=== PATIENT | female | born 1960 | race Caucasian/White ===

== ENCOUNTER → 2019-06-28 | Outpatient (CLI) | payer OTHER ==
--- NOTE | 2019-06-28 13:26 | PFTRPT ---
Height: 62.00 Inches Weight: 289.00 Lbs BSA: 2.24 Diagnosis: J44.9 DATE OF PROCEDURE: 06/28/2019 ORDERED BY: Estefany Vital NP Spirometry: Pre and post bronchodilator study of excellent technical quality. Forced vital capacity reduced. FEV1 in proportion. Obstructive index is, therefore, normal. Flow Volume Loop: Expiratory limb of the flow volume loop suggests nonspecific limitation. No significant bronchodilator response identified. Lung Volumes: Total lung capacity normal. Residual volume does suggest a degree of air trapping. Diffusing Capacity: Diffusing capacity normal. Hemoglobin: No hemoglobin available for correction. Airway Mechanics: Airway resistance mildly elevated with concomitant decrease in airway conductance. IMPRESSION: Nonspecific flow rate limitation with suspected air trapping. Please correlate clinically. MTDD
== END ==
LOC: M CARPUL 12:47
PROVIDERS: ATTEND Nurse Practitioner Family
DX: J44.9 Chronic obstructive pulmonary disease, unspecified (principal)

== ENCOUNTER → 2019-08-03 | Outpatient (REF) | payer MEDICAID, OTHER ==
[2019-08-03 16:03] LABS: ALBUMIN 3.8 GM/DL (3.2-5.2); BILIRUBIN,TOTAL 0.3 MG/DL (0.2-1.0); CALCIUM LEVEL 9.1 MG/DL (8.5-10.1); CHOLESTEROL RISK RATIO 3.941 (<5); CREATININE FOR GFR 1.6 MG/DL (0.55-1.30); FREE T4 1.08 NG/DL (0.76-1.46); GLOMERULAR FILTRATION RATE 35.4 (>51); POTASSIUM SERUM 4.5 MEQ/L (3.5-5.1); THYROID STIMULATING HORMONE 5.01 uIU/ML (0.358-3.740); TOTAL PROTEIN 7.3 GM/DL (6.4-8.2)
== END ==
LOC: M SFHCPLAZ 13:46
DX: E11.8 Type 2 diabetes mellitus with unspecified complications (principal); E03.9 Hypothyroidism, unspecified; E78.2 Mixed hyperlipidemia

== ENCOUNTER → 2019-09-22 | Outpatient (CLI) | payer OTHER ==
[2019-09-22 15:21] LABS: BASO # 0.1 10^3/uL (0.0-0.2); BASO % 0.8 % (0.0-1.0); EOS # 0.3 10^3/uL (0.0-0.5); EOS % 3.2 % (0.0-3.0); LYMPH # 3.9 10^3/uL (1.5-5.0); LYMPH % 37.4 % (24.0-44.0); MEAN CORPUSCULAR HEMOGLOBIN 29.6 pg (27.0-33.0); MEAN CORPUSCULAR HGB CONC 32.6 g/dl (32.0-36.5); MEAN CORPUSCULAR VOLUME 90.9 fl (80.0-96.0); MONO # 0.7 10^3/uL (0.0-0.8); MONO % 6.3 % (0.0-5.0); NEUTROPHILS # 5.5 10^3/uL (1.5-8.5); NEUTROPHILS % 51.8 % (36.0-66.0); PLATELET COUNT, AUTOMATED 209 10^3/uL (150-450); RED BLOOD COUNT 4.73 10^6/uL (4.00-5.40); WHITE BLOOD COUNT 10.5 10^3/uL (4.0-10.0)
[2019-09-22 15:39] LABS: ALBUMIN 3.7 GM/DL (3.2-5.2); CALCIUM LEVEL 8.8 MG/DL (8.5-10.1); CREATININE FOR GFR 1.6 MG/DL (0.55-1.30); GLOMERULAR FILTRATION RATE 35.4 (>51); MAGNESIUM LEVEL 1.8 MG/DL (1.8-2.4); PHOSPHORUS LEVEL 3.4 MG/DL (2.5-4.9); POTASSIUM SERUM 4.2 MEQ/L (3.5-5.1)
[2019-09-22 15:43] LABS: APPEARANCE, URINE CLOUDY (CLEAR); BACTERIA, URINE AUTO 1+ (NEGATIVE); BILIRUBIN, URINE AUTO NEGATIVE (NEGATIVE); BLOOD, URINE BLOOD 3+ (NEGATIVE); COLOR, URINE YELLOW (YELLOW); GLUCOSE, URINE (UA) AUTO NEGATIVE (NEGATIVE); KETONE, URINE AUTO TRACE mg/dL (NEGATIVE); LEUKOCYTE ESTERASE, URINE AUTO NEGATIVE (NEGATIVE); MUCUS, URINE SMALL (NEGATIVE); NITRITE, URINE AUTO NEGATIVE (NEGATIVE); PROTEIN, URINE AUTO 1+ mg/dL (NEGATIVE); RBC, URINE AUTO 4 /HPF (0-3); SPECIFIC GRAVITY URINE AUTO 1.035 (1.002-1.035); SQUAMOUS EPITHELIAL CELL UR AU 14 /HPF (0-6); UROBILINOGEN, URINE AUTO 0.2 mg/dL (0.0-2.0); WBC, URINE AUTO 4 /HPF (0-3)
[2019-09-22 15:48] LABS: PTH INTACT 97.8 PG/ML (18.5-88.0)
[2019-09-22 15:51] LABS: MALB URINE SIEMENS 23.8 MG/L; MAU/CREAT RATIO 5.3 MCG/MG (0.0-30.0)
== END ==
LOC: M LAB 14:26
PROVIDERS: ATTEND Internal Medicine Nephrology
DX: N18.3 Chronic kidney disease, stage 3 (moderate) (principal); E11.22 Type 2 diabetes mellitus with diabetic chronic kidney disease; N25.81 Secondary hyperparathyroidism of renal origin

== ENCOUNTER → 2019-10-01 | Outpatient (CLI) | payer OTHER ==
[2019-10-01 19:30] LABS: TOTAL PROTEIN,RANDOM URINE 13.9 MG/DL (0.0-12.0); URINE TOTAL PROTEIN 13.9 MG/DL (0-12)
[2019-10-01 19:31] LABS: COMPLEMENT C3 136 MG/DL (90-180); COMPLEMENT C4 22 MG/DL (10-40); TOTAL PROTEIN 7.3 GM/DL (6.4-8.2)
--- NOTE | 2019-10-02 07:32 | REP ---
REASON: Renal disease and diabetes. PRIORS: None. Multiple ultrasonographic image of the urinary bladder were obtained transvesically and show no evidence of mass or significant mucosal abnormality. Doppler of the UV junction shows urojet phenomena bilaterally. The pre-void urinary bladder volume calculation is 274 mL with the post-void urinary bladder volume calculation is 0 mL. IMPRESSION: Unremarkable exam as described above. Electronically Signed by Felice Hankins DO 10/02/2019 09:21 A
--- NOTE | 2019-10-02 07:35 | REP ---
REASON: Diabetes and kidney disease. PRIORS: None. The right kidney measures 9.9 x 3.9, x 4.6 cm and the left kidney measures 8.2 x 4.5 x 4.6 cm. The renal cortical echoes are significantly diffusely increased with very poor corticomedullary differentiation. There are no cystic or solid masses on either side. There is no hydronephrosis. IMPRESSION: Medical renal disease. Electronically Signed by Felice Hankins DO 10/02/2019 09:22 A
[2019-10-04 11:33] LABS: HEPATITIS B SURFACE ANTIBODY NEGATIVE (POSITIVE)
[2019-10-04 11:44] LABS: HEPATITIS B SURFACE ANTIGEN NEGATIVE (NEGATIVE)
[2019-10-04 12:12] LABS: HEPATITIS B CORE ANTIBODY IGM NEGATIVE (NEGATIVE); HEPATITIS C VIRUS ABY INDEX 0.1 INDEX (<0.8)
== END ==
LOC: M LAB 17:41
PROVIDERS: ATTEND Internal Medicine Nephrology
DX: N18.3 Chronic kidney disease, stage 3 (moderate) (principal); E11.22 Type 2 diabetes mellitus with diabetic chronic kidney disease; R80.9 Proteinuria, unspecified

== ENCOUNTER → 2019-11-11 | Outpatient (CLI) | payer OTHER ==
[2019-11-11 10:49] LABS: BASO # 0.1 10^3/uL (0.0-0.2); BASO % 0.6 % (0.0-1.0); EOS # 0.3 10^3/uL (0.0-0.5); EOS % 3.3 % (0.0-3.0); HEMATOCRIT 45.1 % (36.0-47.0); HEMOGLOBIN 14.1 g/dl (12.0-15.5); LYMPH # 2.8 10^3/uL (1.5-5.0); LYMPH % 35.8 % (24.0-44.0); MEAN CORPUSCULAR HEMOGLOBIN 28.5 pg (27.0-33.0); MEAN CORPUSCULAR HGB CONC 31.3 g/dl (32.0-36.5); MEAN CORPUSCULAR VOLUME 91.3 fl (80.0-96.0); MONO # 0.4 10^3/uL (0.0-0.8); MONO % 5.6 % (0.0-5.0); NEUTROPHILS # 4.3 10^3/uL (1.5-8.5); NEUTROPHILS % 54.4 % (36.0-66.0); PLATELET COUNT, AUTOMATED 190 10^3/uL (150-450); RED BLOOD COUNT 4.94 10^6/uL (4.00-5.40)
[2019-11-11 10:49] LABS: BACTERIA, URINE AUTO NEGATIVE (NEGATIVE); BILIRUBIN, URINE AUTO NEGATIVE (NEGATIVE); BLOOD, URINE BLOOD NEGATIVE (NEGATIVE); COLOR, URINE YELLOW (YELLOW); GLUCOSE, URINE (UA) AUTO NEGATIVE (NEGATIVE); KETONE, URINE AUTO NEGATIVE (NEGATIVE); LEUKOCYTE ESTERASE, URINE AUTO NEGATIVE (NEGATIVE); MUCUS, URINE SMALL (NEGATIVE); NITRITE, URINE AUTO NEGATIVE (NEGATIVE); PROTEIN, URINE AUTO NEGATIVE (NEGATIVE); RBC, URINE AUTO 2 /HPF (0-3); SPECIFIC GRAVITY URINE AUTO 1.023 (1.002-1.035); SQUAMOUS EPITHELIAL CELL UR AU 2 /HPF (0-6); UROBILINOGEN, URINE AUTO 0.2 mg/dL (0.0-2.0); WBC, URINE AUTO 1 /HPF (0-3)
[2019-11-11 11:09] LABS: ALBUMIN 3.4 GM/DL (3.2-5.2); CALCIUM LEVEL 8.8 MG/DL (8.5-10.1); CREATININE FOR GFR 1.47 MG/DL (0.55-1.30); PHOSPHORUS LEVEL 2.3 MG/DL (2.5-4.9); POTASSIUM SERUM 4.6 MEQ/L (3.5-5.1)
[2019-11-13 06:30] LABS: APPEARANCE, URINE CLEAR (CLEAR)
[2019-11-13 06:31] LABS: WHITE BLOOD COUNT 7.9 10^3/uL (4.0-10.0)
== END ==
LOC: M LAB 10:10
PROVIDERS: ATTEND Internal Medicine Nephrology
DX: N18.3 Chronic kidney disease, stage 3 (moderate) (principal)

== ENCOUNTER → 2020-02-04 | Outpatient (REF) | payer OTHER, MEDICAID ==
[2020-02-04 13:18] LABS: BASO # 0.1 10^3/uL (0.0-0.2); BASO % 0.9 % (0.0-1.0); EOS # 0.3 10^3/uL (0.0-0.5); EOS % 3.4 % (0.0-3.0); HEMATOCRIT 44.2 % (36.0-47.0); HEMOGLOBIN 14.4 g/dl (12.0-15.5); LYMPH # 3.6 10^3/uL (1.5-5.0); LYMPH % 38.6 % (24.0-44.0); MEAN CORPUSCULAR HEMOGLOBIN 29.2 pg (27.0-33.0); MEAN CORPUSCULAR HGB CONC 32.6 g/dl (32.0-36.5); MEAN CORPUSCULAR VOLUME 89.7 fl (80.0-96.0); MONO # 0.6 10^3/uL (0.0-0.8); NEUTROPHILS # 4.8 10^3/uL (1.5-8.5); NEUTROPHILS % 50.7 % (36.0-66.0); PLATELET COUNT, AUTOMATED 189 10^3/uL (150-450); RED BLOOD COUNT 4.93 10^6/uL (4.00-5.40); WHITE BLOOD COUNT 9.4 10^3/uL (4.0-10.0)
[2020-02-04 13:35] LABS: HEMOGLOBIN A1c 6.6 %
[2020-02-04 13:53] LABS: ALBUMIN 3.5 GM/DL (3.2-5.2); BILIRUBIN,TOTAL 0.5 MG/DL (0.2-1.0); CALCIUM LEVEL 8.7 MG/DL (8.5-10.1); CHOLESTEROL RISK RATIO 4.232 (<5); CREATININE FOR GFR 1.46 MG/DL (0.55-1.30); GLOMERULAR FILTRATION RATE 39.3 (>51); POTASSIUM SERUM 4.7 MEQ/L (3.5-5.1); THYROID STIMULATING HORMONE 1.75 uIU/ML (0.358-3.740); TOTAL 25(OH) VITAMIN D 21.7 NG/ML (30.0-100.0); TOTAL PROTEIN 6.9 GM/DL (6.4-8.2)
== END ==
LOC: M LAB REF 12:36
PROVIDERS: ATTEND Family Medicine
DX: I10 Essential (primary) hypertension (principal)

== ENCOUNTER → 2020-04-21 | Outpatient (REF) | payer OTHER, MEDICAID ==
[2020-04-21 18:03] LABS: BASO # 0.1 10^3/uL (0.0-0.2); BASO % 0.9 % (0.0-1.0); EOS # 0.4 10^3/uL (0.0-0.5); EOS % 4.4 % (0.0-3.0); HEMOGLOBIN 13.5 g/dl (12.0-15.5); LYMPH # 2.8 10^3/uL (1.5-5.0); LYMPH % 34.2 % (24.0-44.0); MEAN CORPUSCULAR HEMOGLOBIN 29.3 pg (27.0-33.0); MEAN CORPUSCULAR HGB CONC 32.1 g/dl (32.0-36.5); MEAN CORPUSCULAR VOLUME 91.1 fl (80.0-96.0); MONO # 0.5 10^3/uL (0.0-0.8); MONO % 6.6 % (0.0-5.0); NEUTROPHILS # 4.4 10^3/uL (1.5-8.5); NEUTROPHILS % 53.5 % (36.0-66.0); PLATELET COUNT, AUTOMATED 188 10^3/uL (150-450); RED BLOOD COUNT 4.61 10^6/uL (4.00-5.40); WHITE BLOOD COUNT 8.2 10^3/uL (4.0-10.0)
[2020-04-21 18:24] LABS: HEMOGLOBIN A1c 6.3 %
[2020-04-21 18:35] LABS: ALBUMIN 3.5 GM/DL (3.2-5.2); BILIRUBIN,TOTAL 0.2 MG/DL (0.2-1.0); CALCIUM LEVEL 8.6 MG/DL (8.5-10.1); CHOLESTEROL RISK RATIO 3.878 (<5); CREATININE FOR GFR 1.93 MG/DL (0.55-1.30); FREE T4 1.01 NG/DL (0.76-1.46); GLOMERULAR FILTRATION RATE 28.4 (>51); POTASSIUM SERUM 5.2 MEQ/L (3.5-5.1); THYROID STIMULATING HORMONE 1.49 uIU/ML (0.358-3.740); TOTAL PROTEIN 6.8 GM/DL (6.4-8.2)
[2020-04-21 18:37] LABS: TOTAL 25(OH) VITAMIN D 16.8 NG/ML (30.0-100.0)
== END ==
LOC: M LAB REF 17:21
PROVIDERS: ATTEND Nurse Practitioner Family
DX: E11.69 Type 2 diabetes mellitus with other specified complication (principal); E78.5 Hyperlipidemia, unspecified; M19.90 Unspecified osteoarthritis, unspecified site; I10 Essential (primary) hypertension; F32.9 Major depressive disorder, single episode, unspecified; F41.9 Anxiety disorder, unspecified

== ENCOUNTER → 2020-07-31 | Outpatient (REF) | payer OTHER, MEDICAID ==
[~2020-07-31] MED LIST: ACET-683 PO; ALBU8.5H INH; ARIP1TAB PO; ATOR80TA59 PO; HYDR-3363 PO; LEVO150T7 PO; LISI-542 PO; SERT-138 PO; SPIR-10 PO; STIO1AER INH; TORS20TA2 PO; TRUL10IN PO; VITA200016 PO
[2020-07-31 13:49] LABS: CHOLESTEROL RISK RATIO 3.5 (<5)
[2020-07-31 14:26] LABS: HEMOGLOBIN A1c 6.6 %
== END ==
LOC: M LAB REF 12:24
PROVIDERS: ATTEND Physician Assistant
DX: G25.81 Restless legs syndrome (principal); M25.561 Pain in right knee; E11.69 Type 2 diabetes mellitus with other specified complication

== ENCOUNTER 2020-08-05 19:10 | Inpatient (IN) | payer MEDICAID, OTHER ==
[~2020-08-05] VITALS: Ht 157.5 cm; Wt 150.7 kg
[2020-08-05 11:54] VITALS: BP 102/48
[2020-08-05] MEDS ORDERED: FUROSEMIDE 40MG/4ML VIAL (J1940) IV ONE (19:45)
[2020-08-05 20:08] LABS: BASO # 0.1 10^3/uL (0.0-0.2); BASO % 0.5 % (0.0-1.0); EOS # 0.4 10^3/uL (0.0-0.5); EOS % 3.8 % (0.0-3.0); HEMATOCRIT 39.5 % (36.0-47.0); HEMOGLOBIN 12.4 g/dl (12.0-15.5); LYMPH # 3.3 10^3/uL (1.5-5.0); LYMPH % 32.9 % (24.0-44.0); MEAN CORPUSCULAR HEMOGLOBIN 28.2 pg (27.0-33.0); MEAN CORPUSCULAR HGB CONC 31.4 g/dl (32.0-36.5); MONO # 0.6 10^3/uL (0.0-0.8); MONO % 5.8 % (0.0-5.0); NEUTROPHILS # 5.6 10^3/uL (1.5-8.5); NEUTROPHILS % 56.4 % (36.0-66.0); PLATELET COUNT, AUTOMATED 198 10^3/uL (150-450); RED BLOOD COUNT 4.39 10^6/uL (4.00-5.40)
[2020-08-05 20:21] LABS: INR 0.93; PROTHROMBIN TIME 12.7 SECONDS (12.5-14.3)
[2020-08-05 20:25] LABS: ABG BASE EXCESS -0.8 (-2.0-2.0); ABG HCO3 24.4 MEQ/L (22.0-26.0); ABG O2 SATURATION 97.3 % (95.0-99.0); ABG PARTIAL PRESSURE CO2 42.3 mmHg (35.0-45.0); ABG PARTIAL PRESSURE O2 90.6 mmHg (75.0-100.0); ABG STANDARD HCO3 23.8 MEQ/L (22.0-26.0); ABG TOTAL CO2 25.7 MEQ/L (22.0-29.0); ABG pH (ARTERIAL) 7.379 UNITS (7.350-7.450)
--- NOTE | 2020-08-05 20:44 | REPVR ---
PROCEDURE INFORMATION: Exam: XR Chest, 1 View Exam date and time: 08/05/2020 8:14 PM Age: 60 years old Clinical indication: Cough and dyspnea; Additional info: Dyspnea/cough TECHNIQUE: Imaging protocol: XR of the chest Views: 1 view. COMPARISON: No relevant prior studies available. FINDINGS: Lungs: Unremarkable. No consolidation. Pleural space: Unremarkable. No pleural effusion. No pneumothorax. Heart/Mediastinum: Unremarkable. No cardiomegaly. Bones/joints: Unremarkable. IMPRESSION: No acute findings. Electronically signed by: Bernardo Ingram On 08/05/2020 20:44:26 PM
[2020-08-05 20:52] LABS: ALBUMIN 3.4 GM/DL (3.2-5.2); ALT/SGPT 20 U/L (12-78); BILIRUBIN,DIRECT < 0.1 MG/DL (0.0-0.2); BILIRUBIN,TOTAL 0.3 MG/DL (0.2-1.0); BLOOD UREA NITROGEN 43 MG/DL (7-18); CALCIUM LEVEL 8.6 MG/DL (8.5-10.1); CARBON DIOXIDE LEVEL 29 MEQ/L (21-32); CHLORIDE LEVEL 101 MEQ/L (98-107); CK-MB VALUE MASS < 1.0 NG/ML (<3.6); CPK CREATINE PHOSPHOKINASE 81 U/L (26-192); CREATININE FOR GFR 2.35 MG/DL (0.55-1.30); GLOMERULAR FILTRATION RATE 22.6 (>51); GLUCOSE, FASTING 147 MG/DL (70-100); MB/CK RELATIVE INDEX 1.23 (< OR =4); NT-PRO BNP 185 PG/ML (<125); POTASSIUM SERUM 4.3 MEQ/L (3.5-5.1); SODIUM LEVEL 135 MEQ/L (136-145); TOTAL PROTEIN 6.9 GM/DL (6.4-8.2); TROPONIN I < 0.02 NG/ML (< 0.10)
--- NOTE | 2020-08-05 21:55 | IPNPDOC ---
Text Note Date of Service The patient was seen on 08/05/20. VS,Jennifer, I+O VS, Kelechibone, I+O Laboratory Tests 08/05/20 19:57 Vital Signs Date Time Temp Pulse Resp B/P (MAP) Pulse Ox O2 Delivery O2 Flow Rate FiO2 08/05/20 19:38 Room Air 08/05/20 19:26 74 17 121/54 95 SHANNON GARCÍA MD Aug 05, 2020 21:55
[2020-08-05] MEDS ORDERED: ATOR80TA59 PO (22:44)
[2020-08-05] MEDS ORDERED: VITA200016 PO (22:44)
[2020-08-05] MEDS ORDERED: ARIP1TAB PO (22:44)
[2020-08-05] MEDS ORDERED: ALBU8.5H INH (22:44)
[2020-08-05] MEDS ORDERED: LISI-542 PO (22:44)
[2020-08-05] MEDS ORDERED: TORS20TA2 PO (22:44)
[2020-08-05] MEDS ORDERED: SPIR-10 PO (22:44)
[2020-08-05] MEDS ORDERED: ACET-683 PO (22:44)
[2020-08-05] MEDS ORDERED: TRUL10IN PO (22:44)
[2020-08-05] MEDS ORDERED: STIO1AER INH (22:44)
[2020-08-05] MEDS ORDERED: SERT-138 PO (22:44)
[2020-08-05] MEDS ORDERED: LEVO150T7 PO (22:44)
[2020-08-05] MEDS ORDERED: HYDR-3363 PO (22:44)
[2020-08-05] MEDS ORDERED: DEXTROSE 50% 50 ML SYRINGE IV PRN (23:00)
[2020-08-05] MEDS ORDERED: GLUCOSE 4GM CHEW TABLET PO PRN (23:00)
[2020-08-05] MEDS ORDERED: GLUCAGON INJ 1MG VIAL SC PRN (23:00)
[2020-08-05] MEDS ORDERED: ACETAMINOPHEN TAB 650MG DOSE (2X325MG) PO PRN (23:00)
[2020-08-05] MEDS: ALBUTEROL 90 MCG/ACT 8GM HFA INHALER INH SCH (23:18)
[2020-08-05 23:32] LABS: ERYTHROCYTE SEDIMENTATION RATE 30 mm/hr (0-30)
--- NOTE | 2020-08-05 23:33 | HPEPDOC ---
[facility] Medical History & Physical Date of Admission Aug 05, 2020 Date of Service: Aug 05, 2020 Attending Physician: SHANNON GARCÍA MD History and Physical CHIEF COMPLAINT: Shortness of breath, leg swelling, confusion HISTORY OF PRESENT ILLNESS: Yola Hale is a 60 YO F with morbid obesity, NIDDM2, CKD who presents to the [facility] with shortness of breath, worsened lower extremity edema and family members describing her as "not acting herself." She states that she last saw her share holder Dr. Scott this past Friday for her lower extremity edema and her daily Furosemide was switched to Torsemide and Spironolactone. She started taking these medications on Friday and since that time she has not felt well. She states that her leg edema has acutely worsened and her legs feel more painful than usual. She does not feel as if she is urinating as much as she did when she was taking daily Furosemide. While she denies feeling confused, she does report that her family has told her she has not been "acting herself" for the past few days. In the ED, she was given one dose of 40mg IV lasix and states that her shortness of breath has improved. PAST MEDICAL HISTORY: Type 2 diabetes Hypertension Hyperlipidemia Hypothyroidism chronic obstructive pulmonary disease Depression Generalize anxiety disorder Morbid obesity Paresthesia of skin PAST SURGICAL HISTORY: Tonsillectomy Appendectomy 2 Cholecystectomy SOCIAL HISTORY: Never smoker, Denies EtOH, reports daily marijuana use FAMILY HISTORY: FATHER: 67 years old [place] MOTHER: 70 years old CKD DM diabetes SIBLINGS: Diabetes, unspecified heart disease ALLERGIES: Please see below. REVIEW OF SYSTEMS: Constitutional: No Weight Change, No Fever, No Chills, No Night Sweats, No Fatigue, No Malaise ENT/Mouth: No Hearing Changes, No Ear Pain, No Nasal Congestion, No Sinus Pain, No Hoarseness, No sore throat, No Rhinorrhea, No Swallowing Difficulty Eyes: No Eye Pain, No Swelling, No Redness, No Foreign Body, No Discharge, No Vision Changes Cardiovascular: No Chest Pain, No SOB, No PND, No Dyspnea on Exertion, No Orthopnea, No Claudication, No Edema, No Palpitations Respiratory: Reports shortness of breath, no cough, no wheezing, no dyspnea Gastrointestinal: No Nausea, No Vomiting, No Diarrhea, No Constipation, No Pain, No Heartburn, No Anorexia, No Dysphagia, No Hematochezia, No Melena, No Flatulence, No Jaundice Genitourinary: No Dysmenorrhea, No DUB, No Dyspareunia, No Dysuria Musculoskeletal: Reports worsening lower extremity edema, pain in lower extremities Skin: No Skin Lesions, No Pruritis, No Hair Changes, No Breast/Skin Changes, No Nipple Discharge Neuro: No Weakness, No Numbness, No Paresthesias, No Loss of Consciousness, No Syncope, No Dizziness, No Headache, No Coordination Changes, No Recent Falls Psych: No Anxiety/Panic, No Depression, No Insomnia, No Personality Changes, No Delusions Heme/Lymph: No Bruising, No Bleeding, No Transfusions History, No Lymphadenopathy Endocrine: No Polyuria, No Polydipsia, No Temperature Intolerance HOME MEDICATIONS: Please see below. PHYSICAL EXAM VITAL SIGNS: see below GENERAL: Morbidly obese, alert and oriented, in no apparent distress, pleasant and conversant in full sentences. HEENT: PERRL, EOMI, Oral mucous membranes are moist without lesions. NECK: Unable to determine JVD. No adenopathy is appreciated. No thyromegaly CHEST/LUNGS: Lungs are clear bilaterally with scattered wheezes and possibly crackles in the bases bilaterally, although it is difficult to tell due to the patient's body habitus. There is no subcutaneous air appreciated. There is no tenderness to the chest wall. HEART:Regular rate and rhythm. No murmurs, rubs, or gallops are appreciated. Distal pulses are 2+. No carotid bruits appreciated. ABDOMEN: Soft, nontender, and nondistended. Bowel sounds are positive. No organomegaly is appreciated. No masses are appreciated. There are no peritoneal signs. There is no [place] sign. EXTREMITIES: 3+ pitting edema in lower extremities bilaterally standing up to the thighs SKIN: The patients skin is warm and dry, without rashes or lesions. PSYCHIATRIC: AAO x 3, normal mood/affect NEUROLOGIC: The patient has 5/5 strength to the upper and lower extremities bilaterally. Sensation is intact throughout. Deep tendon reflexes are 2+ in all four extremities. There are no deficits to the cranial nerves. LABORATORY DATA: See below. IMAGING: CHEST XR: FINDINGS: Lungs: Unremarkable. No consolidation. Pleural space: Unremarkable. No pleural effusion. No pneumothorax. Heart/Mediastinum: Unremarkable. No cardiomegaly. Bones/joints: Unremarkable. IMPRESSION: No acute findings. MICROBIOLOGY: Please see below. ASSESSMENT: This is a 60-year-old morbidly obese female with diabetes type 2, CKD who presents with shortness of breath, lower extremity edema found to have acute kidney injury likely secondary to recent medication change. She is currently hemodynamically stable and not requiring any oxygen. She will be admitted for further workup. . PLAN: 1. Acute kidney injury: -It appears the patient's creatinine baseline is around 1.4-1.6. Creatinine today found to be 2.35 and BUNs elevated to 43 -Renal ultrasound ordered -UA, Urine Urea/Cr/Na ordered. Will calculate FeUrea in setting of recent diuretic use -ABG demonstrates normal HCO3 and rest of electrolytes WNL -Holding all nephrotoxic medications including ACEi and diuretics for now -Would recommend Nephrology consult in AM 2. DM2: -SSI with hypoglycemic protocol -Consistent carb diet 3. COPD: Patient did have scattered wheezing on exam. CXR WNL -Continue home inhaler 4. Lower extremity edema: -Echo ordered. None on file 5. Hypothyroidism: -TSH ordered and pending -Continue Levothyroxine 6. HLD: -Continue Atorvastatin 7. Mood disorder: -Continue Sertraline, Abilify, Atarax 8. Morbid Obesity: -Complicates care -BMI 59, consider bariatric surgery referral DVT ppx: Lovenox Vital Signs Vital Signs Date Time Temp Pulse Resp B/P (MAP) Pulse Ox O2 Delivery O2 Flow Rate FiO2 08/05/20 19:38 Room Air 08/05/20 19:26 74 17 121/54 95 Laboratory Data Labs 24H Laboratory Tests 2 08/05/20 19:57: Immature Granulocyte % (Auto) 0.6, Neutrophils (%) (Auto) 56.4, Lymphocytes (%) (Auto) 32.9, Monocytes (%) (Auto) 5.8H, Eosinophils (%) (Auto) 3.8H, Basophils (%) (Auto) 0.5, Neutrophils # (Auto) 5.6, Lymphocytes # (Auto) 3.3, Monocytes # (Auto) 0.6, Eosinophils # (Auto) 0.4, Basophils # (Auto) 0.1, Nucleated Red Blood Cells % (auto) 0.0, Prothrombin Time 12.7, Prothromb Time International Ratio 0.93, Anion Gap 5L, Glomerular Filtration Rate 22.6L, Calcium Level 8.6, Total Bilirubin 0.3, Direct Bilirubin < 0.1, Aspartate Amino Transf (AST/SGOT) 12, Alanine Aminotransferase (ALT/SGPT) 20, Alkaline Phosphatase 109, Total Creatine Kinase 81, Creatine Kinase MB < 1.0, Creatine Kinase MB Relative Index 1.23, Troponin I < 0.02, IC-Ygu-Z-Type Natriuretic Peptide 185H, Total Protein 6.9, Albumin 3.4, Albumin/Globulin Ratio 1.0L 08/05/20 20:14: Blood Gas Bicarbonate Standard 23.8, Arterial Blood pH 7.379, Arterial Blood Partial Pressure CO2 42.3, Arterial Blood Partial Pressure O2 90.6, Arterial Blood Total CO2 25.7, Arterial Blood HCO3 24.4, Arterial Blood Base Excess -0.8, Arterial Blood Oxygen Saturation 97.3 CBC/BMP Laboratory Tests 08/05/20 19:57 Home Medications Scheduled Albuterol Sulfate (Albuterol Sulfate Hfa) 8.5 Gm Hfa.aer.ad, 2 PUFFS INH Q4H Aripiprazole (Aripiprazole) 10 Mg Tablet, 10 MG PO DAILY Atorvastatin Calcium (Atorvastatin Calcium) 80 Mg Tablet, 80 MG PO DAILY Cholecalciferol (Vitamin D3) (Vitamin D3) 50 Mcg Capsule, 50 MCG PO DAILY Dulaglutide (Trulicity) 0.75 Mg/0.5 Ml Pen.injctr, 0.75 MG PO QWEEK friday Hydroxyzine HCl (Hydroxyzine HCl) 25 Mg Tablet, 25 MG PO BID Levothyroxine Sodium (Levothyroxine Sodium) 150 Mcg Tablet, 150 MCG PO QAM Lisinopril (Lisinopril) 5 Mg Tablet, 5 MG PO DAILY Sertraline HCl (Sertraline HCl) 100 Mg Tablet, 200 MG PO DAILY Spironolactone (Spironolactone) 25 Mg Tablet, 25 MG PO DAILY Tiotropium Br/Olodaterol HCl (Stiolto Respimat Inhal Sealy) 4 Gm Mist.inhal, 2 PUFFS INH DAILY Torsemide (Torsemide) 20 Mg Tablet, 40 MG PO BID Scheduled PRN Acetaminophen (Acetaminophen) 500 Mg Tablet, 500 MG PO Q4H PRN for PAIN Allergies Coded Allergies: No Known Allergies (Unverified , 08/05/20) A-FIB/CHADSVASC A-FIB History Current/History of A-Fib/PAF?: No GME ATTESTATION GME ATTESTATION My faculty preceptor for this patient encounter was physically present during the encounter and was fully available. All aspects of the patient interview, examination, medical decision making process, and medical care plan development were reviewed and approved by the faculty preceptor. The faculty preceptor is aware and concurs with the plan as stated in the body of this note and will attest to such by his/her cosignature. ATTENDING NOTE TIME OF SERVICE 1040PM I reviewed the note and also independently examined the patient, I agree with the findings as documented by with the following additions. Ms. Hale is a 60 old female with history of HTN, DM, CKD4, morbid obesity and hypothyroidism who presented with complaints of shortness of breath that is worse with exertion & bilateral lower extremity edema. She denies having history of CHF. # Dyspnea cause TBD EKG showed NSR w a rate of 70 She had expiratory crackles at the lung bases She has not smoked PFTs done in Jun 2019 showed "IMPRESSION: Nonspecific flow rate limitation with suspected air trapping. Please correlate clinically." there was no mention of COPD on the report Plan: admit to [facility] telemetry / elevate HOB to 30 degrees / f/u serial trops to r/o silent RI / BNP may be falsely low because of her BMI f/u Echo to r/o CHF if this is unrevealing the patient's PCP may consider referring her back to Pulm for additional testing #BLE edema possibly due to venous stasis vs fluid overload from worsening renal function vs CHF She admits to eating out at [employer] yesterday and feeling like she is retaining water despite taking her lasix Plan: elevate legs / compression stalkings / f/u Echo / f/u w Nephro # DIOMEDES on CKD Cr was 1.93 on April 21 Plan: renal US / hold off IVF for now pending Ulytes for FEUrea, uric acid, PTH / hold lisinopril, torsemide and spironolactone / Nephro consult # Chronic hypertension Plan: hold lisinopril, torsemide and spironolactone / start amlodipine Rest per 's H&P ROGERS COTE MD Aug 05, 2020 22:12 SHANNON GARCÍA MD Aug 06, 2020 02:44
--- NOTE | 2020-08-05 23:42 | REPVR ---
PROCEDURE INFORMATION: Exam: US Retroperitoneal Limited, Kidneys Exam date and time: 08/05/2020 11:20 PM Age: 60 years old Clinical indication: Abnormal findings; Abnormal lab test; Abnormal kidney function lab tests; Additional info: Aditya on ckd TECHNIQUE: Imaging protocol: Real-time ultrasound of the retroperitoneum with image documentation. Examination was focused on the kidneys. COMPARISON: RENAL US 10/01/2019 6:15 PM FINDINGS: Right kidney: The right kidney measures 10.3 x 5.8 by 6.7 cm. Increased echogenicity. Left kidney: Left kidney measures 9.4 x 4.5 by 4.2 cm. Increased echogenicity. Bladder: Visualized bladder is unremarkable. Other findings: Extremely limited examination secondary to patient's body habitus and bowel gas. IMPRESSION: Extremely Limited examination secondary to patient's body habitus and bowel gas. Increased echogenicity of bilateral kidneys. Clinical correlation with the medical renal disease. Electronically signed by: Bernardo Ingram On 08/05/2020 23:41:29 PM
[2020-08-05 23:54] VITALS: BP 102/48
[2020-08-06] MEDS: HumaLOG INSULIN (NovoLOG) PER UNIT SC SCH ×5 (00:39→21:00)
[2020-08-06] MEDS: DOCUSATE SODIUM 100 MG CAP PO SCH ×3 (01:07→21:00)
[2020-08-06] MEDS: hydrOXYzine 25 MG TAB PO SCH ×3 (01:08→21:19)
[2020-08-06 01:47] LABS: MAGNESIUM LEVEL 2.1 MG/DL (1.8-2.4)
[2020-08-06] MEDS: ALBUTEROL 90 MCG/ACT 8GM HFA INHALER INH SCH ×5 (04:00→19:31)
[2020-08-06] MEDS: LEVOTHYROXINE 150MCG TABLET (0.15MG) PO SCH (05:59)
[2020-08-06 06:00] VITALS: BP 104/61
[2020-08-06 06:45] LABS: HEMATOCRIT 37.3 % (36.0-47.0); HEMOGLOBIN 11.8 g/dl (12.0-15.5); MEAN CORPUSCULAR HEMOGLOBIN 28.6 pg (27.0-33.0); MEAN CORPUSCULAR HGB CONC 31.6 g/dl (32.0-36.5); MEAN CORPUSCULAR VOLUME 90.3 fl (80.0-96.0); PLATELET COUNT, AUTOMATED 177 10^3/uL (150-450); RED BLOOD COUNT 4.13 10^6/uL (4.00-5.40); WHITE BLOOD COUNT 9.3 10^3/uL (4.0-10.0)
[2020-08-06 07:04] LABS: CALCIUM LEVEL 8.7 MG/DL (8.5-10.1); CREATININE FOR GFR 2.41 MG/DL (0.55-1.30); MAGNESIUM LEVEL 2.2 MG/DL (1.8-2.4); POTASSIUM SERUM 4.4 MEQ/L (3.5-5.1)
[2020-08-06 07:10] LABS: TROPONIN I < 0.02 NG/ML (< 0.10); URIC ACID 10.3 MG/DL (2.6-6.0)
[2020-08-06] MEDS: TIOTROPIUM INHALER/CAPSULE (SPIRIVA) INH SCH (08:55)
[2020-08-06 09:00] VITALS: BP 104/71
[2020-08-06] MEDS ORDERED: amLODIPine 5 MG TAB PO SCH (09:00)
[2020-08-06] MEDS ORDERED: FLUBLOK(EGG FREE)(QUAD)INFLUENZA VACC 0.5ML SYRINGE 18YRS & OLDER IM ONE (09:00)
[2020-08-06] MEDS: ENOXAPARIN 30MG/0.3ML SYRINGE (J1650 PER 10MG) SC SCH (09:32)
[2020-08-06] MEDS: ATORVASTATIN 20 MG TAB PO SCH (09:34)
[2020-08-06] MEDS: ARIPiprazole 10 MG TAB PO SCH (09:35)
[2020-08-06] MEDS: SERTRALINE 100 MG TAB PO SCH (09:36)
[2020-08-06 10:53] LABS: APPEARANCE, URINE CLEAR (CLEAR); BACTERIA, URINE AUTO NEGATIVE (NEGATIVE); BILIRUBIN, URINE AUTO NEGATIVE (NEGATIVE); BLOOD, URINE BLOOD 2+ (NEGATIVE); COLOR, URINE STRAW (YELLOW); GLUCOSE, URINE (UA) AUTO NEGATIVE (NEGATIVE); KETONE, URINE AUTO NEGATIVE (NEGATIVE); LEUKOCYTE ESTERASE, URINE AUTO NEGATIVE (NEGATIVE); MUCUS, URINE SMALL (NEGATIVE); NITRITE, URINE AUTO NEGATIVE (NEGATIVE); PROTEIN, URINE AUTO NEGATIVE (NEGATIVE); RBC, URINE AUTO 1 /HPF (0-3); SPECIFIC GRAVITY URINE AUTO 1.006 (1.002-1.035); SQUAMOUS EPITHELIAL CELL UR AU 1 /HPF (0-6); UROBILINOGEN, URINE AUTO 0.2 mg/dL (0.0-2.0); WBC, URINE AUTO 2 /HPF (0-3)
[2020-08-06 10:58] LABS: CREATININE,RANDOM URINE 57.1 MG/DL; SODIUM,RANDOM URINE 58 MEQ/L
[2020-08-06 10:59] LABS: OSMOLALITY URINE 265 MOSM/KG (500-800)
[2020-08-06] MEDS ORDERED: FUROSEMIDE 40MG/4ML VIAL (J1940) IV ONE (12:45)
[2020-08-06] MEDS: allopurinoL 100 MG TAB PO SCH (13:47)
[2020-08-06 14:00] VITALS: BP 96/63
--- NOTE | 2020-08-06 15:27 | ECGEPIP ---
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
[2020-08-06] MEDS ORDERED: traMADol 50 MG TAB PO PRN (15:45)
--- NOTE | 2020-08-06 15:46 | IPNPDOC ---
Date Seen The patient was seen on 08/06/20. Progress Note SUBJECTIVE: No acute complaints by patient. Nephrology to see today, echo pending to be done. OBJECTIVE PHYSICAL EXAM VITAL SIGNS: see below GENERAL: Morbidly obese, alert and oriented, in no apparent distress HEENT: PERRL, EOMI, Oral mucous membranes are moist without lesions. NECK: Unable to determine JVD. No adenopathy is appreciated. No thyromegaly CHEST/LUNGS: Mild exp wheezing, no rhonchi, rales HEART: RRR, S1S2 +, no M/R/G ABDOMEN: Soft, nontender, and nondistended. Bowel sounds are positive. No organomegaly is appreciated. No masses are appreciated. There are no peritoneal signs. EXTREMITIES: 2+ pitting edema in lower extremities bilaterally standing up to the thighs SKIN: The patients skin is warm and dry, without rashes or lesions. PSYCHIATRIC: AAO x 3, normal mood/affect NEUROLOGIC: CN2-12 intact, no focal deficits LABORATORY DATA: See below. IMAGING: Renal US: Extremely Limited examination secondary to patient's body habitus and bowel gas. Increased echogenicity of bilateral kidneys. Clinical correlation with the medical renal disease. CHEST XR: Lungs: Unremarkable. No consolidation. Pleural space: Unremarkable. No pleural effusion. No pneumothorax. Heart/Mediastinum: Unremarkable. No cardiomegaly. Bones/joints: Unremarkable. IMPRESSION: No acute findings. MICROBIOLOGY: Please see below. ASSESSMENT: This is a 60-year-old morbidly obese female with diabetes type 2, CKD who presents with shortness of breath, lower extremity edema admitted for acute kidney injury. PLAN: 1. Acute kidney injury likely 2/2 to diuretics -Recently had spironolactone added to torsemide o/p, per nephrology. -Cr slightly worsened to 2.41 today, baseline 1.4-1.6. -Renal ultrasound above -Per nephro, will intermittently diurese, monitoring Cr closely. Dr. Scott consulted 2. Lower extremity edema r/o cardiac cause vs. 2/2 to DIOMEDES -Per nephrology who saw her 1 week ago in clinic, this has actually decreased with diuretics -Echo ordered. None on file -Monitor daily wt, I&O's closely -F/u nephrology recommendations 3. COPD, not in exacerbation -mild wheezing;however, on RA and this is apparently patient's baseline. -CXR WNL -Continue home inhaler 4. DM2: -SSI with hypoglycemic protocol -Consistent carb diet 5. Hypothyroidism: -tSH wnl -Continue Levothyroxine 6. HLD: -Continue Atorvastatin 7. Mood disorder: -Continue Sertraline, Abilify, Atarax 8. Morbid Obesity: -Complicates care -BMI 59, consider bariatric surgery referral 9. DVT ppx: Lovenox DISPOSITION: Currently under inpatient status. Plan is discharge home when medically improved. VS, I&O, 24H, Fishbone Vital Signs/I&O Vital Signs Date Time Temp Pulse Resp B/P (MAP) Pulse Ox O2 Delivery O2 Flow Rate FiO2 08/06/20 09:00 61 104/71 08/06/20 06:00 97.4 18 95 Room Air I&O- Last 24 Hours up to 6 AM 08/06/20 06:00 Intake Total 200 ml Output Total 0 ml Balance 200 ml Laboratory Data 24H LABS Laboratory Tests 2 08/05/20 19:57: Immature Granulocyte % (Auto) 0.6, Neutrophils (%) (Auto) 56.4, Lymphocytes (%) (Auto) 32.9, Monocytes (%) (Auto) 5.8H, Eosinophils (%) (Auto) 3.8H, Basophils (%) (Auto) 0.5, Neutrophils # (Auto) 5.6, Lymphocytes # (Auto) 3.3, Monocytes # (Auto) 0.6, Eosinophils # (Auto) 0.4, Basophils # (Auto) 0.1, Nucleated Red Blood Cells % (auto) 0.0, Erythrocyte Sedimentation Rate 30, Prothrombin Time 12.7, Prothromb Time International Ratio 0.93, Anion Gap 5L, Glomerular Filtration Rate 22.6L, Calcium Level 8.6, Phosphorus Level 4.0, Magnesium Level 2.1, Total Bilirubin 0.3, Direct Bilirubin < 0.1, Aspartate Amino Transf (AST/SGOT) 12, Alanine Aminotransferase (ALT/SGPT) 20, Alkaline Phosphatase 109, Total Creatine Kinase 81, Creatine Kinase MB < 1.0, Creatine Kinase MB Relative Index 1.23, Troponin I < 0.02, LA-Yav-F-Type Natriuretic Peptide 185H, Total Protein 6.9, Albumin 3.4, Albumin/Globulin Ratio 1.0L, Thyroid Stimulating Hormone (TSH) 3.250 08/05/20 20:14: Blood Gas Bicarbonate Standard 23.8, Arterial Blood pH 7.379, Arterial Blood Partial Pressure CO2 42.3, Arterial Blood Partial Pressure O2 90.6, Arterial Blood Total CO2 25.7, Arterial Blood HCO3 24.4, Arterial Blood Base Excess -0.8, Arterial Blood Oxygen Saturation 97.3 08/06/20 00:23: Bedside Glucose (Misc Panel) 117H 08/06/20 02:56: Troponin I < 0.02 08/06/20 05:44: Nucleated Red Blood Cells % (auto) 0.0, Anion Gap 5L, Glomerular Filtration Rate 22.0L, Uric Acid 10.3H, Calcium Level 8.7, Magnesium Level 2.2, Troponin I < 0.02 08/06/20 10:12: Urine Color STRAW, Urine Appearance CLEAR, Urine pH 5.0, Urine Specific [place] 1.006, Urine Protein NEGATIVE, Urine Glucose (Auto)(UA) NEGATIVE, Urine Ketones (Auto) NEGATIVE, Urine Blood 2+H, Urine Nitrite NEGATIVE, Urine Bilirubin NEGATIVE, Urine Urobilinogen 0.2, Urine Leukocyte Esterase (Auto) NEGATIVE, Urine WBC (Auto) 2, Urine RBC (Auto) 1, Urine Hyaline Casts (Auto) 0, Urine Bacteria (Auto) NEGATIVE, Urine Squamous Epithelial Cells 1, Urine Mucus (Auto) SMALL, Urine Sperm (Auto) , Urine Random Osmolality 265L, Urine Random Creatinine 57.1, Urine Random Sodium 58 08/06/20 11:26: Bedside Glucose (Misc Panel) 156H CBC/BMP Laboratory Tests 08/05/20 19:57 08/06/20 05:44 Current Medications Current Medications Medications (Trade) Dose Ordered Sig/Shiv Route PRN Reason Start Time Stop Time Status Last Admin Dose Admin Acetaminophen (Tylenol Tab) 650 mg Q4H PRN PO PAIN OR FEVER 08/05/20 23:00 08/06/20 09:33 Albuterol Sulfate (Proventil, Ventolin Hfa) 2 puff RQ4H INH 08/06/20 00:00 08/06/20 12:45 Allopurinol (Zyloprim) 100 mg DAILY PO 08/06/20 12:45 08/06/20 13:47 Amlodipine Besylate (Norvasc) 5 mg DAILY PO 08/06/20 09:00 08/06/20 12:18 DC Aripiprazole (AbiLIFY) 10 mg DAILY PO 08/06/20 09:00 08/06/20 09:35 Atorvastatin Calcium (Lipitor) 80 mg DAILY PO 08/06/20 09:00 08/06/20 09:34 Dextrose (Dextrose 50%) 25 ml ASDIRECTED PRN IV SEE LABEL COMMENTS 08/05/20 23:00 Docusate Sodium (Colace) 100 mg BID PO 08/05/20 21:00 08/06/20 09:36 Enoxaparin Sodium (Lovenox) 30 mg DAILY SC 08/06/20 09:00 08/06/20 09:32 Glucagon (Glucagon) 1 mg ASDIRECTED PRN SC SEE LABEL COMMENTS 08/05/20 23:00 Glucose (Glucose) 16 GM ASDIRECTED PRN PO SEE LABEL COMMENTS 08/05/20 23:00 Home Med (Med Rec Complete!) ASDIRECTED XX 08/05/20 22:45 08/05/20 22:58 DC Hydroxyzine HCl (Atarax) 25 mg BID PO 08/05/20 21:00 08/06/20 09:33 Insulin Human Lispro (HumaLOG INSULIN) See Protocol Table AC SC 08/06/20 07:30 08/06/20 13:35 Insulin Human Lispro (HumaLOG INSULIN) See Protocol Table QHS LA 08/05/20 21:00 Levothyroxine Sodium (Synthroid) 150 mcg DAILY@0600 PO 08/06/20 06:00 08/06/20 05:59 Sertraline HCl (Zoloft) 200 mg DAILY PO 08/06/20 09:00 08/06/20 09:36 Tiotropium [place] (Spiriva Handihaler) 2 inhalation DAILY@08 INH 08/06/20 08:00 08/06/20 08:55 Allergies Coded Allergies: No Known Allergies (Unverified , 08/05/20) Cori Chacko MD Aug 06, 2020 15:46
[2020-08-06 18:07] VITALS: BP 104/58
[2020-08-06 22:00] VITALS: BP 118/70
[2020-08-07] MEDS: ALBUTEROL 90 MCG/ACT 8GM HFA INHALER INH SCH ×4 (04:00→11:21)
[2020-08-07 05:36] LABS: HEMATOCRIT 37.4 % (36.0-47.0); HEMOGLOBIN 12.3 g/dl (12.0-15.5); MEAN CORPUSCULAR HEMOGLOBIN 29.1 pg (27.0-33.0); MEAN CORPUSCULAR HGB CONC 32.9 g/dl (32.0-36.5); MEAN CORPUSCULAR VOLUME 88.6 fl (80.0-96.0); PLATELET COUNT, AUTOMATED 170 10^3/uL (150-450); RED BLOOD COUNT 4.22 10^6/uL (4.00-5.40); WHITE BLOOD COUNT 8.9 10^3/uL (4.0-10.0)
[2020-08-07] MEDS: LEVOTHYROXINE 150MCG TABLET (0.15MG) PO SCH (05:42)
[2020-08-07 05:54] LABS: CALCIUM LEVEL 8.8 MG/DL (8.5-10.1); CREATININE FOR GFR 1.82 MG/DL (0.55-1.30); GLOMERULAR FILTRATION RATE 30.4 (>51); MAGNESIUM LEVEL 2.2 MG/DL (1.8-2.4); POTASSIUM SERUM 4.9 MEQ/L (3.5-5.1)
[2020-08-07 06:00] VITALS: BP 119/65
[2020-08-07] MEDS: TIOTROPIUM INHALER/CAPSULE (SPIRIVA) INH SCH (07:19)
[2020-08-07] MEDS: DOCUSATE SODIUM 100 MG CAP PO SCH (08:44)
[2020-08-07] MEDS: ARIPiprazole 10 MG TAB PO SCH (08:44)
[2020-08-07] MEDS: hydrOXYzine 25 MG TAB PO SCH (08:44)
[2020-08-07] MEDS: SERTRALINE 100 MG TAB PO SCH (08:44)
[2020-08-07] MEDS: ATORVASTATIN 20 MG TAB PO SCH (08:44)
[2020-08-07] MEDS: allopurinoL 100 MG TAB PO SCH (08:45)
[2020-08-07] MEDS: HumaLOG INSULIN (NovoLOG) PER UNIT SC SCH ×2 (08:45→12:00)
[2020-08-07] MEDS: ENOXAPARIN 30MG/0.3ML SYRINGE (J1650 PER 10MG) SC SCH (08:45)
[2020-08-07 09:50] LABS: PTH INTACT 201.4 PG/ML (18.5-88.0)
[2020-08-07] MEDS ORDERED: TORSEMIDE 10 MG TABLET PO SCH (10:30)
[2020-08-07] MEDS ORDERED: TORS20TA2 PO (11:19)
--- NOTE | 2020-08-07 17:13 | DS.PDOC ---
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 Scott this past Friday for her lower extremity edema and her daily Furosemide was switched to Torsemide and Spironolactone. She started taking these medications on Friday and since that time she has not felt well. She states that her leg edema has acutely worsened and her legs feel more painful than usual. She does not feel as if she is urinating as much as she did when she was taking daily Furosemide. While she denies feeling confused, she does report that her family has told her she has not been "acting herself" for the past few days. In the ED, she was given one dose of 40mg IV lasix and states that her shortness of breath has improved. HOSPITAL COURSE: During hospitalization creatinine improved steadily. She received Lasix 40 mg IV on 08/06/2020 ordered by nephrology and patient lost 1 L fluid over 24 hours. Creatinine continued to improve from 2.4 to 1.8 (her baseline). Lower extremity edema improved slightly. Case was discussed with nephrology who believed her acute kidney injury was likely secondary to NIKHIL inhibitor and diuretic combination. Hypotension and lightheadedness were likely secondary to hypotension. On 08/07/2020 the patient was discharged home with nephrology's approval to follow-up in our clinic in one week. She is only to be discharged on torsemide 30 mg daily, spironolactone and NIKHIL inhibitor were stopped. He denied chest pain, shortness of breath, nausea, vomiting, fevers, chills. PAST MEDICAL HISTORY: Type 2 diabetes Hypertension Hyperlipidemia Hypothyroidism chronic obstructive pulmonary disease Depression Generalize anxiety disorder Morbid obesity Paresthesia of skin PAST SURGICAL HISTORY: Tonsillectomy Appendectomy 2 Cholecystectomy SOCIAL HISTORY: Never smoker, Denies EtOH, reports daily marijuana use FAMILY HISTORY: FATHER: 67 years old OR MOTHER: 70 years old CKD DM diabetes SIBLINGS: Diabetes, unspecified heart disease ALLERGIES: Please see below. PHYSICAL EXAM VITAL SIGNS: see below GENERAL: Morbidly obese, alert and oriented, in no apparent distress HEENT: PERRL, EOMI, Oral mucous membranes are moist without lesions. NECK: Unable to determine JVD. No adenopathy is appreciated. No thyromegaly CHEST/LUNGS: Mild exp wheezing, no rhonchi, rales HEART: RRR, S1S2 +, no M/R/G ABDOMEN: Soft, nontender, and nondistended. Bowel sounds are positive. No organomegaly is appreciated. No masses are appreciated. There are no peritoneal signs. EXTREMITIES: 2+ pitting edema in lower extremities bilaterally standing up to the thighs SKIN: The patients skin is warm and dry, without rashes or lesions. PSYCHIATRIC: AAO x 3, normal mood/affect NEUROLOGIC: CN2-12 intact, no focal deficits LABORATORY DATA: See below. IMAGING: Renal US: Extremely Limited examination secondary to patient's body habitus and bowel gas. Increased echogenicity of bilateral kidneys. Clinical correlation with the medical renal disease. CHEST XR: Lungs: Unremarkable. No consolidation. Pleural space: Unremarkable. No pleural effusion. No pneumothorax. Heart/Mediastinum: Unremarkable. No cardiomegaly. Bones/joints: Unremarkable. IMPRESSION: No acute findings. MICROBIOLOGY: Please see below. ASSESSMENT: This is a 60-year-old morbidly obese female with diabetes type 2, CKD who presents with shortness of breath, lower extremity edema admitted for acute kidney injury. PLAN: 1. Acute kidney injury likely 2/2 to diuretics -Recently had spironolactone added to torsemide o/p, per nephrology. -Cr improved further to now baseline 1.8 -Renal ultrasound above -D/c home today with only torsemide 30 mg PO daily. Stopped spironolactone and ACEi on d/c. To f/u with nephrology in 1 week in clinic. 2. Lower extremity edema r/o cardiac cause vs. 2/2 to DIOMEDES -Slightly improved since admission. -Echo pending, PCP should f/u results. -torsemide daily 3. COPD, not in exacerbation -mild wheezing;however, on RA and this is apparently patient's baseline. -CXR WNL -Continue home inhaler 4. DM2: -Consistent carb diet 5. Hypothyroidism: -tSH wnl -Continue Levothyroxine 6. HLD: -Continue Atorvastatin 7. Mood disorder: -Continue Sertraline, Abilify, Atarax 8. Morbid Obesity: -Complicates care -BMI 59, consider bariatric surgery referral DISPOSITION: Discharged home with PCP and nephrology f/u in 1 week. TIME SPENT ON DISCHARGE: Greater than 30 minutes. Vital Signs/I&Os Vital Signs Date Time Temp Pulse Resp B/P (MAP) Pulse Ox O2 Delivery O2 Flow Rate FiO2 08/07/20 06:00 98.1 94 18 119/65 (83) 96 Room Air I&O- Last 24 Hours up to 6 AM 08/07/20 06:00 Intake Total 1210 ml Output Total 2800 ml Balance -1590 ml Laboratory Data Labs 24H Laboratory Tests 2 08/06/20 20:58: Bedside Glucose (Misc Panel) 135H 08/07/20 05:11: Nucleated Red Blood Cells % (auto) 0.0, Anion Gap 6L, Glomerular Filtration Rate 30.4L, Calcium Level 8.8, Magnesium Level 2.2 08/07/20 11:49: Bedside Glucose (Misc Panel) 144H CBC/BMP Laboratory Tests 08/07/20 05:11 FSBS Laboratory Tests Test 08/06/20 20:58 08/07/20 11:49 Range/Units Bedside Glucose (Misc Panel) 135 144 70-105 MG/DL Discharge Medications Scheduled Albuterol Sulfate (Albuterol Sulfate Hfa) 8.5 Gm Hfa.aer.ad, 2 PUFFS INH Q4H, ( Reported) Aripiprazole (Aripiprazole) 10 Mg Tablet, 10 MG PO DAILY, (Reported) Atorvastatin Calcium (Atorvastatin Calcium) 80 Mg Tablet, 80 MG PO DAILY, (Reported) Cholecalciferol (Vitamin D3) (Vitamin D3) 50 Mcg Capsule, 50 MCG PO DAILY, (Reported) Dulaglutide (Trulicity) 0.75 Mg/0.5 Ml Pen.injctr, 0.75 MG PO QWEEK, (Reported) friday Hydroxyzine HCl (Hydroxyzine HCl) 25 Mg Tablet, 25 MG PO BID, (Reported) Levothyroxine Sodium (Levothyroxine Sodium) 150 Mcg Tablet, 150 MCG PO QAM, (Reported) Sertraline HCl (Sertraline HCl) 100 Mg Tablet, 200 MG PO DAILY, (Reported) Tiotropium Br/Olodaterol HCl (Stiolto Respimat Inhal [place]) 4 Gm Mist.inhal, 2 PUFFS INH DAILY, (Reported) Torsemide (Torsemide) 20 Mg Tablet, 30 MG PO DAILY Scheduled PRN Acetaminophen (Acetaminophen) 500 Mg Tablet, 500 MG PO Q4H PRN for PAIN, (Reported) Allergies Coded Allergies: No Known Allergies (Unverified , 08/05/20) Current Medications Current Medications Medications (Trade) Dose Ordered Sig/Shiv Route PRN Reason Start Time Stop Time Status Last Admin Dose Admin Acetaminophen (Tylenol Tab) 650 mg Q4H PRN PO PAIN OR FEVER 08/05/20 23:00 08/07/20 13:18 DC 08/06/20 09:33 Albuterol Sulfate (Proventil, Ventolin Hfa) 2 puff RQ4H INH 08/06/20 00:00 08/07/20 13:18 DC 08/07/20 11:21 Allopurinol (Zyloprim) 100 mg DAILY PO 08/06/20 12:45 08/07/20 13:18 DC 08/07/20 08:45 Amlodipine Besylate (Norvasc) 5 mg DAILY PO 08/06/20 09:00 08/06/20 12:18 DC Aripiprazole (AbiLIFY) 10 mg DAILY PO 08/06/20 09:00 08/07/20 13:18 DC 08/07/20 08:44 Atorvastatin Calcium (Lipitor) 80 mg DAILY PO 08/06/20 09:00 08/07/20 13:18 DC 08/07/20 08:44 Dextrose (Dextrose 50%) 25 ml ASDIRECTED PRN IV SEE LABEL COMMENTS 08/05/20 23:00 08/07/20 13:18 DC Docusate Sodium (Colace) 100 mg BID PO 08/05/20 21:00 08/07/20 13:18 DC 08/07/20 08:44 Enoxaparin Sodium (Lovenox) 30 mg DAILY SC 08/06/20 09:00 08/07/20 13:18 DC 08/07/20 08:45 Glucagon (Glucagon) 1 mg ASDIRECTED PRN SC SEE LABEL COMMENTS 08/05/20 23:00 08/07/20 13:18 DC Glucose (Glucose) 16 GM ASDIRECTED PRN PO SEE LABEL COMMENTS 08/05/20 23:00 08/07/20 13:18 DC Home Med (Med Rec Complete!) ASDIRECTED XX 08/05/20 22:45 08/05/20 22:58 DC Hydroxyzine HCl (Atarax) 25 mg BID PO 08/05/20 21:00 08/07/20 13:18 DC 08/07/20 08:44 Insulin Human Lispro (HumaLOG INSULIN) See Protocol Table AC AR 08/06/20 07:30 08/07/20 13:18 DC 08/07/20 08:45 Insulin Human Lispro (HumaLOG INSULIN) See Protocol Table QHS AR 08/05/20 21:00 08/07/20 13:18 DC Levothyroxine Sodium (Synthroid) 150 mcg DAILY@0600 PO 08/06/20 06:00 08/07/20 13:18 DC 08/07/20 05:42 Sertraline HCl (Zoloft) 200 mg DAILY PO 08/06/20 09:00 08/07/20 13:18 DC 08/07/20 08:44 Tiotropium Bernie (Spiriva Handihaler) 2 inhalation DAILY@08 INH 08/06/20 08:00 08/07/20 13:18 DC 08/07/20 07:19 Torsemide (Demadex) 30 mg DAILY PO 08/07/20 10:30 08/07/20 13:18 DC 08/07/20 11:32 Tramadol HCl (Ultram) 50 mg Q8HP PRN PO MODERATE PAIN (PS 5-7) 08/06/20 15:45 08/07/20 13:18 DC 08/06/20 16:08 Cori Chacko MD Aug 07, 2020 17:13
--- NOTE | 2020-08-08 16:25 | CR ---
DATE OF CONSULTATION: REQUESTING PHYSICIAN: Rachael Treadwell MD CONSULTING PHYSICIAN: Nupur Scott MD REASON FOR CONSULTATION: Management of acute renal failure superimposed on chronic kidney disease and lower extremity edema. CHIEF COMPLAINT: Patient presented to the hospital yesterday with worsening lower extremity edema and, as per family member, she had some altered mental status as well. HISTORY OF PRESENT ILLNESS: Blanche Hale is a 60-year-old female with past medical history of morbid obesity, diabetes mellitus type 2, chronic kidney disease stage III, baseline creatinine of around 1.5 as outpatient, she follows up with myself in nephrology clinic and I saw her about a week ago. At that time, she was complaining of persistent lower extremity edema and at that point her furosemide was stopped. She was started on torsemide 40 mg by mouth twice a day along with spironolactone 25 mg by mouth daily and after taking this medicine, patient did report that her edema was improving but, as per family member, she had some confusion so she was brought to the emergency room. In the emergency room, patient was found to have edema. She was given a dose of Lasix, but her creatinine was higher than baseline, she had a creatinine of 2.3, so she was admitted under the hospitalist service. Nephrology service was called for further help in the management of this patient. I saw and evaluated the patient today morning at the bedside. She was laying in the bed. She denied any active complaints apart from lower extremity edema. Her angiotensin-converting enzymes (NIKHIL) inhibitors were already held on admission. She was switched to amlodipine, but because of her low blood pressure she could not even get amlodipine dose. PAST MEDICAL HISTORY: Past medical history of CKD III, baseline creatinine of around 1.5, diabetes mellitus type 2, hypertension, hyperlipidemia, morbid obesity, hypothyroidism, chronic obstructive pulmonary disease (COPD), depression, and generalized anxiety. PAST SURGICAL HISTORY: Status post tonsillectomy in the past, history of appendectomy in the past, section times two, and status post cholecystectomy. ALLERGIES: No known drug allergies. FAMILY HISTORY: No significant family history of end-stage renal disease requiring hemodialysis. SOCIAL HISTORY: Patient lives at home. She denies any illicit drug abuse alcohol abuse. She does report daily marijuana use. REVIEW OF SYSTEMS: Constitutional: She reports feeling weak and tired. Eyes: She denies any blurry vision or double vision. Ears, nose, and throat (ENT): She denies any dysphagia or odynophagia. Cardiovascular: She denies any chest pains or palpitations. She does report lower extremity edema. Respiratory: She does report moderate shortness of breath. Gastrointestinal (GI): She denies any nausea or vomiting. Genitourinary: She denies any dysuria or hematuria. Musculoskeletal: She denies any muscle aches or pains. Skin: She denies any rashes or ulcers. Psychiatric: She does report history of depression and anxiety. Hematological/Oncological: She denies any easy bleeding or bruising. Endocrine: She reports history of hypothyroidism and diabetes mellitus type 2. Central nervous system (SHOP SUPERVISOR): She denies any strokes or seizures. All other review of systems is negative. PHYSICAL EXAMINATION: General: Patient is awake, alert, oriented times three, laying in bed. Vital signs: Temperature is 97.5 degrees Fahrenheit, blood pressure 196/63, pulse is 67, respiratory rate of 18, saturating 95% on room air. Head and neck exam: Extraocular muscles intact. Pupils equally round and reactive to light. Mucous membranes are moist. Neck is supple. There is mildly elevated jugular venous distension (JVD). Cardiovascular: S1, S2, regular rate. 2+ edema of the bilateral lower extremities. Respiratory: Chest is clear to auscultation bilaterally. Bilateral equal air entry. No rales or rhonchi. Abdomen: Soft, obese, positive bowel sounds, nontender, no organomegaly. Old surgical scars are noted in the abdomen. Genitourinary: Bladder is not palpable at this time. Musculoskeletal: No clubbing or cyanosis. Pulses are 2+. 2+ edema of the bilateral lower extremities as mentioned above. Central nervous system (SHOP SUPERVISOR): No focal deficits. Power is 5/5 in all extremities. LABORATORY REVIEW: CBC showed WBC 9.3, hemoglobin 11.8, platelets are 177. INR is 0.9. Urinalysis done yesterday showed 2+ blood, there was no protein, random osmolality was 265, creatinine was 57, sodium was 58. ABG done yesterday shows pH of 7.37. BMP done today morning showed sodium 136, potassium 4.4, chloride 102, bicarbonate 29, BUN 43, creatinine is 2.4, glucose is 134. Uric acid is 10.3. Troponin is less than 0.02. PTH level is pending. ProBNP was 185 only yesterday. IMAGING: Renal ultrasound was done yesterday and because of the body habitus no acute pathology could be noted. There was increased echogenicity in the kidney. Chest x-ray was also done yesterday which showed no acute finding. HOME MEDICATIONS: Patients home medications include: - Tylenol as needed - albuterol as needed - aripiprazole 10 mg by mouth daily - Lipitor 80 mg by mouth daily - vitamin D 350 mcg daily - Trulicity 0.75 mg once a week - hydroxyzine 25 mg by mouth twice a day - levothyroxine 150 mcg by mouth daily - lisinopril 5 mg by mouth daily - sertraline 200 mg by mouth daily - spironolactone 25 mg by mouth daily - Stiolto inhaler two puffs daily - torsemide 40 mg by mouth twice a day ASSESSMENT: 60-year-old female with past medical history of non-insulin dependent diabetes, hypertension, morbid obesity, hypothyroidism, admitted at this time with lower extremity edema and altered mental status. PLAN: 1. Acute renal failure superimposed on chronic kidney disease. It is possible that it might be secondary to high dose of diuretics along with lisinopril use and possibly being hypotensive at home. All of the antihypertensives are on hold and diuretics are also held. Because of the lower extremity edema, I am just going to give her a small dose of IV Lasix 40 mg IV. Will see how she responds to a lower dose of diuretics. 2. Hypertension. Patient is actually hypotensive today. Patient does not need any antihypertensive at this time. I am actually stopping amlodipine as well because that might be contributing to lower extremity edema as well. Continue as needed diuretics only. 3. Hyperuricemia. Patient is being started on allopurinol 100 mg by mouth daily and, as mentioned above, diuretics have been decreased. 4. Diabetes mellitus type 2, non-insulin dependent. Patient was on Trulicity at home. Glucose levels are within the acceptable range at this time. 5. Hypothyroidism. Continue current dose of levothyroxine 150 mcg by mouth daily. Thyroid stimulating hormone (TSH) level is within the acceptable range. 6. Chronic obstructive pulmonary disease (COPD). Continue current inhalers at this time. Rest of the management is as per medical team. No need of steroids. 7. History of depression and anxiety. Continue current dose of Ability, Atarax, and sertraline. Thank you for involving me in the care of this patient. I shall be happy to follow the patient along with you tomorrow morning. MTDD
--- NOTE | 2020-08-10 10:25 | IPN ---
DATE: 08/07/2020 SUBJECTIVE: The patient was seen and examined at the bedside today morning. She is afebrile, hemodynamically stable. She was sitting up on the sofa at the bedside. She reports she is feeling much better today as compared with yesterday. All the antihypertensive medications were stopped yesterday. She was just given a dose of Lasix 40 mg IV yesterday. She made a good amount of urine. Reports that lower extremity edema is getting better. Renal function is also improving. Creatinine has come down from 2.4 to 1.8 today, which is her baseline. OBJECTIVE: Vital signs: Temperature is 98.1 degrees Fahrenheit, blood pressure 119/65, pulse 94, respiratory rate of 18, saturating 96% n room air. Intake and output: Urine output recorded as 2.3 liters yesterday and 900 ml so far today since overnight. In the bed scale is 150 kg. PHYSICAL EXAMINATION: General: The patient is awake, alert and oriented times 3. Morbidly obese, sitting up on the sofa in no apparent distress. . Head and neck examination: Extraocular movements intact. Pupils equally round and reactive to light. Mucous membranes are moist. Mildly elevated jugular venous distention (JVD). Cardiovascular: S1, S2, regular rate. 1+ edema of the bilateral lower extremities. Respiratory: Chest is clear to auscultation bilaterally. Bilateral equal air entry. No rales or rhonchi. Abdomen: Soft, obese, positive bowel sounds. Nontender, no organomegaly. Musculoskeletal: No clubbing or cyanosis. 1+ edema of the extremities as noted above. MORTGAGE LOAN REVIEWER: No focal deficits. Power is 5/5 in all extremities. LABORATORY DATA: Complete blood count (CBC) showed a WBC of 19, hemoglobin 12.3, platelets 170. Basic metabolic panel (BMP) showed sodium 142, potassium 4.9, chloride 106, bicarbonate 30, BUN 38, creatinine is 1.8, it was 2.4 yesterday, calcium 8.8, magnesium is 2.2. Parathyroid hormone is 201. ASSESSMENT AND PLAN: 1. Acute kidney injury superimposed on chronic kidney disease most likely secondary to use of aggressive diuretics and hypertensives. The patient's renal function has improved back to baseline. Creatinine is 1.8, which is her baseline. No need for antihypertensives at this time. Low dose of diuretics have been started. 2. Lower extremity edema. The patient was given IV Lasix yesterday, today she has been started on torsemide 30 mg by mouth daily. She should continue this dose on discharge. 3. Hypertension. The patient's blood pressures are soft. She is only requiring diuretics, only NIKHIL inhibitors and calcium channel blockers have been stopped. The rest of the antihypertensive regimen will be adjusted as an outpatient. 4. Hyperuremia without acute attack. Continue current dose of allopurinol 100 mg by mouth daily. DISPOSITION: It is okay to discharge the patient from a nephrology standpoint. She will be followed up in the nephrology office within one week after discharge from the hospital. Plan of care was discussed with the hospitalist, Dr. Persaud. Ricco. BHVAIN
--- NOTE | 2020-08-11 15:37 | ECHO ---
DATE OF PROCEDURE: 08/07/2020 Height: 157 cm Weight: 146 kg. REFERRING PHYSICIAN: Racheal Al INDICATION: Edema. MEASUREMENTS: IV 1.0 LV 5.4 LVPW 0.9 LA 3.8 Aorta 3.2 RV 3.1 IVC 2.0 Mitral E wave velocity 116, A wave 77 E prime septal 15.3 E prime lateral 11.1 FINDINGS: The study is of very limited technical quality corresponding to the patient's morbid obesity. The patient is in sinus rhythm. Left ventricle is normal size and has normal systolic function with estimated ejection fraction (EF) around 65 to 70%. I certainly cannot rule out subtle wall motion abnormalities. Right ventricle does not appear grossly enlarged. Both atria appear normal. Limited visualization of aortic, mitral and tricuspid valves indicates no abnormalities. Pulmonic valve was not seen. Inferior vena is in the upper limits of normal size. Aortic root is normal. Aortic arch and abdominal aorta were not well seen. Doppler interrogation reveals competent aortic and mitral valves. There is trace tricuspid insufficiency. Limited quality of TR jet indicates pulmonary artery pressure within normal limits. Mitral inflow pattern and tissue Doppler imaging of mitral annulus reveal normal diastolic function CONCLUSIONS: 1. Study is of very limited technical quality, the patient is in sinus rhythm. 2. Normal LV size with normal LV systolic function and normal diastolic function. 3. No significant valvular disease. 4. Normal or mildly elevated central venous pressure and likely normal pulmonary artery pressure. COMMENTS: It seems less likely that peripheral edema would be a consequence of congestive heart failure based on results of this echocardiogram. Edited: brian 08/11/2020 1549 MTDD
== END 2020-08-07 12:45 | disposition home or self-care (01) | DRG 469 ==
LOC: M ED 19:10 → M ED INP 21:48 → ENRESERV 22:31 → M MSPAV 23:56
PROVIDERS: ADMIT Internal Medicine; ATTEND Internal Medicine
DX: N17.9 Acute kidney failure, unspecified (principal); Z68.44 Body mass index [BMI] 60.0-69.9, adult; I12.9 Hypertensive chronic kidney disease with stage 1 through stage 4 chronic kidney disease, or unspecified chronic kidney disease; E66.01 Morbid (severe) obesity due to excess calories; E11.9 Type 2 diabetes mellitus without complications; E78.5 Hyperlipidemia, unspecified; E03.9 Hypothyroidism, unspecified; F32.9 Major depressive disorder, single episode, unspecified; J44.9 Chronic obstructive pulmonary disease, unspecified; F41.1 Generalized anxiety disorder; F12.90 Cannabis use, unspecified, uncomplicated; N18.3 Chronic kidney disease, stage 3 (moderate)

== ENCOUNTER → 2020-11-08 | Outpatient (REF) | payer OTHER, MEDICAID ==
[2020-11-08 17:11] LABS: HEMOGLOBIN A1c 6.8 %
[2020-11-08 17:30] LABS: ALBUMIN 3.7 GM/DL (3.2-5.2); BILIRUBIN,TOTAL 0.4 MG/DL (0.2-1.0); CALCIUM LEVEL 9.9 MG/DL (8.5-10.1); CHOLESTEROL RISK RATIO 4.093 (<5); CREATININE FOR GFR 1.54 MG/DL (0.55-1.30); FREE T4 1.22 NG/DL (0.76-1.46); GLOMERULAR FILTRATION RATE 36.8 (>51); POTASSIUM SERUM 3.8 MEQ/L (3.5-5.1); THYROID STIMULATING HORMONE 1.15 uIU/ML (0.358-3.740); TOTAL PROTEIN 7.5 GM/DL (6.4-8.2)
[2020-11-08 17:39] LABS: TOTAL 25(OH) VITAMIN D 29.4 NG/ML (30.0-100.0)
== END ==
LOC: M LAB REF 16:28
PROVIDERS: ATTEND Nurse Practitioner Family
DX: E11.69 Type 2 diabetes mellitus with other specified complication (principal); E78.5 Hyperlipidemia, unspecified; M19.90 Unspecified osteoarthritis, unspecified site; I10 Essential (primary) hypertension; F32.9 Major depressive disorder, single episode, unspecified; F41.9 Anxiety disorder, unspecified

== ENCOUNTER → 2021-06-14 | Outpatient (REF) | payer OTHER, MEDICAID ==
[~2021-06-14] MED LIST changes: +ARIP10TA32 PO; -ARIP1TAB PO; -LISI-542 PO; +LISI-898 PO
== END ==
LOC: M LAB REF 12:52
PROVIDERS: ATTEND Internal Medicine Nephrology
DX: N18.32 Chronic kidney disease, stage 3b (principal)

== ENCOUNTER 2021-07-27 09:44 | Outpatient (CLI) | payer OTHER ==
[~2021-07-27] VITALS: Ht 157.5 cm; Wt 143.6 kg
[~2021-07-27 09:44] MED LIST changes: +ALBUTEROL 90 MCG/ACT 8GM HFA INHALER INH PRN; +ALBUTEROL SULFATE 2.5 MG/0.5 ML INH NEB SOLN INH PRN; +CASIRIVIMAB/IMDEVIMAB 1,200 MG in NS 250 ML IV ONE; +EPINEPHrine INJ 1 MG/ML 1ML AMP IM PRN; -LISI-898 PO; +LISI5TAB11 PO; +NS 1,000 ML IV SCH; +diphenhydrAMINE 50MG/ML VIAL (J1200) IV PRN; +methylPREDNISolone 125MG 2ML VIAL IV PRN
[2021-07-27 10:06] VITALS: BP 126/59
[2021-07-27 11:15] VITALS: BP 135/63
[2021-07-27 11:47] VITALS: BP 132/61
[2021-07-27 12:15] VITALS: BP 133/61
[2021-07-27 12:45] VITALS: BP 128/63
[2021-07-27 13:53] VITALS: BP 131/59
== END 2021-07-27 14:03 | disposition home or self-care (01) ==
LOC: M INFU 09:44
PROVIDERS: ATTEND Physician Assistant
DX: U07.1 COVID-19 (principal)

== ENCOUNTER → 2021-08-30 | Outpatient (REF) | payer OTHER ==
[~2021-08-30] MED LIST changes: -ALBUTEROL 90 MCG/ACT 8GM HFA INHALER INH PRN; -ALBUTEROL SULFATE 2.5 MG/0.5 ML INH NEB SOLN INH PRN; -CASIRIVIMAB/IMDEVIMAB 1,200 MG in NS 250 ML IV ONE; -EPINEPHrine INJ 1 MG/ML 1ML AMP IM PRN; +LISI-898 PO; -LISI5TAB11 PO; -NS 1,000 ML IV SCH; -diphenhydrAMINE 50MG/ML VIAL (J1200) IV PRN; -methylPREDNISolone 125MG 2ML VIAL IV PRN
[2021-08-30 13:41] LABS: BACTERIA, URINE AUTO 1+ (NEGATIVE); CALCIUM OXALATE CRYSTALS MODERATE; MUCUS, URINE SMALL (NEGATIVE); RBC, URINE AUTO 3 /HPF (0-3); SQUAMOUS EPITHELIAL CELL UR AU 5 /HPF (0-6); WBC, URINE AUTO 8 /HPF (0-3)
== END ==
LOC: M LAB REF 12:54
PROVIDERS: ATTEND Nurse Practitioner Family
DX: R31.9 Hematuria, unspecified (principal); N18.32 Chronic kidney disease, stage 3b

== ENCOUNTER → 2021-11-30 | Outpatient (REF) | payer OTHER ==
[~2021-11-30] MED LIST changes: -LISI-898 PO; +LISI5TAB11 PO
== END ==
LOC: M LAB REF 12:46
PROVIDERS: ATTEND Internal Medicine Nephrology
DX: N18.32 Chronic kidney disease, stage 3b (principal)

== ENCOUNTER → 2021-12-26 | Outpatient (REF) | payer OTHER, MEDICAID ==
[2021-12-26 13:30] LABS: APPEARANCE, URINE CLEAR (CLEAR); BACTERIA, URINE AUTO 1+ (NEGATIVE); BILIRUBIN, URINE AUTO NEGATIVE (NEGATIVE); BLOOD, URINE BLOOD 3+ (NEGATIVE); COLOR, URINE COLORLESS (YELLOW); GLUCOSE, URINE (UA) AUTO NEGATIVE (NEGATIVE); KETONE, URINE AUTO NEGATIVE (NEGATIVE); LEUKOCYTE ESTERASE, URINE AUTO 2+ (NEGATIVE); NITRITE, URINE AUTO NEGATIVE (NEGATIVE); PROTEIN, URINE AUTO NEGATIVE (NEGATIVE); RBC, URINE AUTO 13 /HPF (0-3); SPECIFIC GRAVITY URINE AUTO 1.005 (1.002-1.035); SQUAMOUS EPITHELIAL CELL UR AU 2 /HPF (0-6); UROBILINOGEN, URINE AUTO 0.2 mg/dL (0.0-2.0); WBC, URINE AUTO 7 /HPF (0-3)
== END ==
LOC: M SMT 12:56
PROVIDERS: ATTEND Physician Assistant
DX: R31.21 Asymptomatic microscopic hematuria (principal)

== ENCOUNTER → 2022-08-15 | Outpatient (CLI) | payer MEDICAID, OTHER | LOC: M RAD 13:03 | PROVIDERS: ATTEND Nurse Practitioner Adult Health | DX: R06.02 Shortness of breath (principal) ==

== ENCOUNTER → 2022-10-07 | Outpatient (CLI) | payer OTHER ==
[~2022-10-07] MED LIST changes: +CALC1CAP31 PO; +EPLE25TA PO; +FLUO40CA PO; +GABA-1171 PO; +MAGN400T2 PO; +TRAM50TA2 PO
== END ==
LOC: M LABSMTC 10:22
PROVIDERS: ATTEND Anesthesiology
DX: Z01.812 Encounter for preprocedural laboratory examination (principal); Z11.52 Encounter for screening for COVID-19

== ENCOUNTER 2022-10-11 06:53 | Day surgery (SDC) | payer OTHER ==
[~2022-10-11] VITALS: Ht 157.5 cm; Wt 142.0 kg
[~2022-10-11 06:53] MED LIST changes: +NS 1,000 ML IV ONE
[2022-10-11] MEDS ORDERED: propofoL 200 MG/20 ML VIAL As Ordered ONE (07:41)
[2022-10-11 08:33] VITALS: BP 129/72
== END 2022-10-11 09:59 | disposition home or self-care (01) ==
LOC: M OPP 06:53
PROVIDERS: ATTEND Surgery
DX: Z12.11 Encounter for screening for malignant neoplasm of colon (principal); D12.2 Benign neoplasm of ascending colon; K64.0 First degree hemorrhoids; E11.42 Type 2 diabetes mellitus with diabetic polyneuropathy; E03.9 Hypothyroidism, unspecified; E66.01 Morbid (severe) obesity due to excess calories; M19.90 Unspecified osteoarthritis, unspecified site; F41.9 Anxiety disorder, unspecified; F32.A Depression, unspecified; J44.9 Chronic obstructive pulmonary disease, unspecified; Z88.8 Allergy status to other drugs, medicaments and biological substances; Z79.85 Long-term (current) use of injectable non-insulin antidiabetic drugs; Z79.890 Hormone replacement therapy; Z79.899 Other long term (current) drug therapy; Z80.0 Family history of malignant neoplasm of digestive organs

== ENCOUNTER → 2022-10-24 | Outpatient (CLI) | payer OTHER ==
[~2022-10-24] MED LIST changes: +METHACHOLINE KIT INH ONE; -NS 1,000 ML IV ONE
== END ==
LOC: M CARPUL 14:28
PROVIDERS: ATTEND Nurse Practitioner Adult Health
DX: R06.02 Shortness of breath (principal); Z53.9 Procedure and treatment not carried out, unspecified reason

== ENCOUNTER → 2022-11-07 | Outpatient (CLI) | payer OTHER | LOC: M CARPUL 13:36 | PROVIDERS: ATTEND Nurse Practitioner Adult Health | DX: R06.02 Shortness of breath (principal) | CPT/HCPCS: 94070; 95070; J7674 ==

== ENCOUNTER → 2023-01-13 | Outpatient (REF) | payer OTHER, MEDICAID ==
[~2023-01-13] MED LIST changes: -METHACHOLINE KIT INH ONE
[2023-01-13 18:20] LABS: HEMOGLOBIN A1c 7.7 % (4.0-6.0)
[2023-01-13 18:42] LABS: THYROID STIMULATING HORMONE 3.149 uIU/ML (0.55-4.78); TOTAL 25(OH) VITAMIN D 41.6 NG/ML (20.0-100.0)
== END ==
LOC: M LAB REF 16:17
PROVIDERS: ATTEND Physician Assistant
DX: E11.40 Type 2 diabetes mellitus with diabetic neuropathy, unspecified (principal); E03.9 Hypothyroidism, unspecified; E55.9 Vitamin D deficiency, unspecified

== ENCOUNTER → 2023-07-23 | Outpatient (REF) | payer OTHER, MEDICAID ==
[2023-07-23 20:56] LABS: ALBUMIN 3.5 G/DL (3.2-5.2); BILIRUBIN,TOTAL 0.4 MG/DL (0.3-1.2); CHOLESTEROL RISK RATIO 3.68 (<5); CREATININE FOR GFR 1.41 MG/DL (0.55-1.30); GLOMERULAR FILTRATION RATE 40.4 (>45); HDL CHOLESTEROL 39.9 MG/DL (>40); LDL CHOLESTEROL 77.7 MG/DL (<100); NON-HDL-C 107.1 MG/DL; POTASSIUM SERUM 5.5 MMOL/L (3.5-5.1); TOTAL PROTEIN 6.7 G/DL (5.7-8.2)
[2023-07-23 22:04] LABS: HEMOGLOBIN A1c 6.8 % (4.0-6.0)
== END ==
LOC: M LAB REF 17:28
PROVIDERS: ATTEND Physician Assistant
DX: E78.5 Hyperlipidemia, unspecified (principal); E11.40 Type 2 diabetes mellitus with diabetic neuropathy, unspecified

== ENCOUNTER → 2023-07-30 | Outpatient (REF) | payer OTHER, MEDICAID ==
[2023-07-30 17:31] LABS: CREATININE, URINE 111.6 MG/DL
[2023-07-30 17:33] LABS: MAU/CREAT RATIO 78.8 MCG/MG (0.0-30.0)
== END ==
LOC: M LAB REF 16:40
PROVIDERS: ATTEND Nurse Practitioner Family
DX: E13.9 Other specified diabetes mellitus without complications (principal)

== ENCOUNTER → 2023-10-13 | Outpatient (REF) | payer OTHER, MEDICAID ==
[2023-10-13 17:54] LABS: ALBUMIN 3.3 G/DL (3.2-5.2); BILIRUBIN,TOTAL 0.4 MG/DL (0.3-1.2); CALCIUM LEVEL 8.9 MG/DL (8.3-10.6); CHOLESTEROL RISK RATIO 3.41 (<5); CREATININE FOR GFR 1.41 MG/DL (0.55-1.30); GLOMERULAR FILTRATION RATE 40.4 (>45); HDL CHOLESTEROL 45.4 MG/DL (>40); NON-HDL-C 109.6 MG/DL; POTASSIUM SERUM 5.6 MMOL/L (3.5-5.1); THYROID STIMULATING HORMONE 1.186 uIU/ML (0.55-4.78); TOTAL 25(OH) VITAMIN D 37.1 NG/ML (20.0-100.0); TOTAL PROTEIN 6.5 G/DL (5.7-8.2)
[2023-10-13 18:15] LABS: HEMOGLOBIN A1c 6.3 % (4.0-6.0)
== END ==
LOC: M LAB REF 16:28
PROVIDERS: ATTEND Nurse Practitioner Family
DX: E55.9 Vitamin D deficiency, unspecified (principal); E78.5 Hyperlipidemia, unspecified; R74.01 Elevation of levels of liver transaminase levels; E11.21 Type 2 diabetes mellitus with diabetic nephropathy; E87.5 Hyperkalemia

== ENCOUNTER → 2023-10-27 | Outpatient (REF) | payer OTHER, MEDICAID | LOC: M LAB REF 16:37 | PROVIDERS: ATTEND Nurse Practitioner Family | DX: Z53.9 Procedure and treatment not carried out, unspecified reason (principal) ==

== ENCOUNTER → 2023-11-12 | Outpatient (REF) | payer OTHER, MEDICAID ==
[2023-11-12 19:22] LABS: ALBUMIN 3.7 G/DL (3.2-5.2); BILIRUBIN,TOTAL 0.5 MG/DL (0.3-1.2); CALCIUM LEVEL 9.1 MG/DL (8.3-10.6); CREATININE FOR GFR 1.32 MG/DL (0.55-1.30); GLOMERULAR FILTRATION RATE 43.6 (>45); POTASSIUM SERUM 4.8 MMOL/L (3.5-5.1); TOTAL PROTEIN 6.8 G/DL (5.7-8.2)
== END ==
LOC: M LAB REF 17:44
PROVIDERS: ATTEND Nurse Practitioner Family
DX: N18.32 Chronic kidney disease, stage 3b (principal)

== ENCOUNTER → 2024-02-06 | Outpatient (REF) | payer OTHER, MEDICAID ==
[2024-02-06 16:56] LABS: HEMOGLOBIN A1c 7.2 % (4.0-6.0)
== END ==
LOC: M LAB REF 16:10
PROVIDERS: ATTEND Physician Assistant
DX: E11.40 Type 2 diabetes mellitus with diabetic neuropathy, unspecified (principal)

== ENCOUNTER → 2024-03-11 | Outpatient (CLI) | payer OTHER, MEDICAID ==
[~2024-03-11] MED LIST changes: -EPLE25TA PO; +EPLE25TA2 PO
== END ==
LOC: M SOG 08:23
PROVIDERS: ATTEND Physician Assistant
DX: M25.561 Pain in right knee (principal); M25.562 Pain in left knee; M17.0 Bilateral primary osteoarthritis of knee

== ENCOUNTER → 2024-07-30 | Outpatient (REF) | payer OTHER, MEDICAID ==
[2024-07-30 17:14] LABS: CREATININE, URINE 111.6 MG/DL; MAU/CREAT RATIO 59.1 MCG/MG (0.0-30.0)
== END ==
LOC: M LAB REF 16:15
PROVIDERS: ATTEND Physician Assistant
DX: E11.40 Type 2 diabetes mellitus with diabetic neuropathy, unspecified (principal)

== ENCOUNTER → 2024-11-15 | Outpatient (CLI) | payer OTHER ==
[~2024-11-15] MED LIST changes: -ARIP10TA32 PO; +ARIP10TA63 PO; +EPLE25TA15 PO; -EPLE25TA2 PO
== END ==
LOC: M WHC 12:44
PROVIDERS: ATTEND Physician Assistant
DX: R92.8 Other abnormal and inconclusive findings on diagnostic imaging of breast (principal)

== ENCOUNTER → 2025-06-01 | Outpatient (CLI) | payer OTHER | LOC: M RAD 13:31 | PROVIDERS: ATTEND Nurse Practitioner Family | DX: N18.32 Chronic kidney disease, stage 3b (principal) ==

== ENCOUNTER → 2025-06-01 | Outpatient (CLI) | payer OTHER | LOC: M LAB 13:29 | PROVIDERS: ATTEND Physician Assistant | DX: E55.9 Vitamin D deficiency, unspecified (principal) ==

== ENCOUNTER → 2025-06-17 | Outpatient (REF) | payer OTHER ==
[2025-06-17 18:43] LABS: ESTIMATED AVERAGE GLUCOSE 146.0 MG/DL (60-110)
== END ==
LOC: M LAB REF 17:19
PROVIDERS: ATTEND Nurse Practitioner Family
DX: E11.40 Type 2 diabetes mellitus with diabetic neuropathy, unspecified (principal)

== ENCOUNTER → 2025-06-20 | Outpatient (REF) | payer OTHER ==
[2025-06-20 18:36] LABS: CREATININE, URINE 95.0 MG/DL; MALB URINE SIEMENS 49.0 MG/L; MAU/CREAT RATIO 51.5 MCG/MG (0.0-30.0)
== END ==
LOC: M LAB REF 17:18
PROVIDERS: ATTEND Nurse Practitioner Family
DX: E11.40 Type 2 diabetes mellitus with diabetic neuropathy, unspecified (principal)

== ENCOUNTER → 2025-07-05 | Outpatient (REF) | payer OTHER | LOC: M LAB REF 14:25 | PROVIDERS: ATTEND Physician Assistant | DX: R30.0 Dysuria (principal) ==

== ENCOUNTER → 2025-07-12 | Outpatient (CLI) | payer OTHER | LOC: M WHC 08:20 | PROVIDERS: ATTEND Physician Assistant | DX: R92.8 Other abnormal and inconclusive findings on diagnostic imaging of breast (principal); R92.313 Mammographic fatty tissue density, bilateral breasts ==

== ENCOUNTER → 2025-08-02 | Outpatient (REF) | payer OTHER ==
[2025-08-02 19:44] LABS: VITAMIN B12 LEVEL 421.0 PG/ML (211-911)
[2025-08-02 19:45] LABS: FREE T4 1.2 NG/DL (0.89-1.76)
== END ==
LOC: M LAB REF 16:46
PROVIDERS: ATTEND Psychiatry & Neurology Neurology
DX: E07.9 Disorder of thyroid, unspecified (principal); E53.8 Deficiency of other specified B group vitamins